=== PATIENT | female | born 1995 | race African-American/Black ===

== ENCOUNTER 2017-02-24 21:20 | Inpatient (IN) | payer MEDICAID ==
[~2017-02-24] VITALS: Ht 167.6 cm; Wt 59.1 kg
[2017-02-25] MEDS ORDERED: LORazepam 2 MG TABLET PO PRN (00:30)
[2017-02-25] MEDS ORDERED: HALOPERIDOL 5 MG TABLET PO PRN (00:30)
[2017-02-25] MEDS ORDERED: ZOLPIDEM TARTRATE 10 MG TABLET PO PRN (00:30)
[2017-02-25 02:05] LABS: APPEARANCE,URINE CLEAR (CLEAR); BILIRUBIN,URINE NEGATIVE (NEGATIVE); GLUCOSE, URINE (UA) NEGATIVE (NEGATIVE); KETONES,URINE 15 mg/dL (NEGATIVE); LEUKOCYTE ESTERASE ,URINE SMALL (NEGATIVE); NITRATE,URINE NEGATIVE (NEGATIVE); OCCULT BLOOD,URINE MODERATE (NEGATIVE); PH,URINE 6.5 (5.0-8.0); PROTEIN,URINE NEGATIVE (NEGATIVE)
[2017-02-25 02:31] LABS: BACTERIA,URINE Moderate /HPF (None Seen); SQUAMOUS EPITHELIAL CELL,UR Moderate /LPF (None Seen)
[2017-02-25 03:44] LABS: AMPHET/METH SCREEN,URINE NEGATIVE (NEGATIVE); BARBITURATE SCREEN, URINE NEGATIVE (NEGATIVE); BENZODIAZEPINES SCREEN,URINE NEGATIVE (NEGATIVE); CANNABINOID SCREEN,URINE POSITIVE (NEGATIVE); COCAINE SCREEN,URINE NEGATIVE (NEGATIVE); METHADONE SCREEN, URINE NEGATIVE (NEGATIVE); OPIATE SCREEN,URINE NEGATIVE (NEGATIVE)
[2017-02-25 03:45] LABS: PHENCYCLIDINE SCREEN,URINE NEGATIVE (NEGATIVE)
[2017-02-25 04:24] VITALS: BP 144/96
[2017-02-25] MEDS ORDERED: INFLUENZA VIRUS VACCINE QVS 2017-18 (3YR+)/PF 60 MCG/0.5 ML SYRINGE IM ONE (05:30)
[2017-02-25 10:50] VITALS: BP 113/68
[2017-02-25 17:12] VITALS: BP 131/85
[2017-02-25 17:47] LABS: HCG,QUAL RESULT NEGATIVE (NEGATIVE)
[2017-02-25] MEDS ORDERED: PETROLATUM,WHITE 71 GM JELLY TP PRN (20:15)
[2017-02-25] MEDS ORDERED: MAGNESIUM HYDROXIDE SUSPENSION 30 ML UDCUP PO PRN (20:15)
[2017-02-25] MEDS ORDERED: BACITRACIN 28.4 GM OINTMENT TP PRN (20:15)
[2017-02-25] MEDS ORDERED: LOPERAMIDE HCL 2 MG CAPSULE PO PRN (20:15)
[2017-02-25] MEDS ORDERED: ONDANSETRON HCL 4 MG TABLET PO PRN (20:15)
[2017-02-25] MEDS ORDERED: IBUPROFEN 600 MG TABLET PO PRN (20:15)
[2017-02-25] MEDS ORDERED: MAG HYDROX/AL HYDROX/SIMETH ES 30 ML SUSPENSION UDCUP PO PRN (20:15)
[2017-02-25] MEDS ORDERED: ACETAMINOPHEN 325 MG TABLET PO PRN (20:15)
[2017-02-25] MEDS ORDERED: CloNIDine HCL 0.1 MG TABLET PO PRN (20:15)
[2017-02-25] MEDS: NITROFURANTOIN/NITROFURAN MAC 100 MG CAPSULE [MACROBID] PO SCH (20:15)
[2017-02-25] MEDS ORDERED: BENZOCAINE/MENTHOL LOZENGE [8 LOZENGES/PACKET] MM PRN (20:30)
[2017-02-25] MEDS: RisperiDONE 0.5 MG TABLET PO SCH (21:00)
[2017-02-26 05:28] VITALS: BP 118/70
[2017-02-26] MEDS: NITROFURANTOIN/NITROFURAN MAC 100 MG CAPSULE [MACROBID] PO SCH ×2 (09:00→16:47)
[2017-02-26] MEDS: OMEPRAZOLE 20 MG CAPSULE PO SCH (09:00)
[2017-02-26] MEDS: DOCUSATE SODIUM 100 MG CAPSULE PO SCH (09:00)
[2017-02-26 09:14] VITALS: BP 153/97
[2017-02-26] MEDS ORDERED: CloNIDine HCL 0.1 MG TABLET PO PRN (12:15)
[2017-02-26 16:35] VITALS: BP 138/97
[2017-02-26] MEDS: RisperiDONE 0.5 MG TABLET PO SCH (20:43)
[2017-02-27 02:45] VITALS: BP 138/80
[2017-02-27 08:58] VITALS: BP 138/71
[2017-02-27] MEDS: NITROFURANTOIN/NITROFURAN MAC 100 MG CAPSULE [MACROBID] PO SCH ×2 (09:00→17:00)
[2017-02-27] MEDS: OMEPRAZOLE 20 MG CAPSULE PO SCH (09:00)
[2017-02-27] MEDS: DOCUSATE SODIUM 100 MG CAPSULE PO SCH (09:00)
[2017-02-27] MEDS ORDERED: RISP.5 PO (14:12)
[2017-02-27] MEDS ORDERED: DSS100 PO (14:13)
[2017-02-27] MEDS ORDERED: MACR100 PO (14:13)
[2017-02-27] MEDS ORDERED: OMEP20 PO (14:14)
== END 2017-02-27 17:45 | disposition home or self-care (01) | DRG 885 ==
LOC: EMS 21:22 → 3EI 02-25 02:00
DX: F29 Unspecified psychosis not due to a substance or known physiological condition (principal); F32.9 Major depressive disorder, single episode, unspecified; N39.0 Urinary tract infection, site not specified; F41.9 Anxiety disorder, unspecified; F64.9 Gender identity disorder, unspecified; G47.00 Insomnia, unspecified; I10 Essential (primary) hypertension; Z28.21 Immunization not carried out because of patient refusal; Z59.0 Homelessness; K59.00 Constipation, unspecified; Z79.899 Other long term (current) drug therapy; K40.90 Unilateral inguinal hernia, without obstruction or gangrene, not specified as recurrent; Z71.51 Drug abuse counseling and surveillance of drug abuser
CPT/HCPCS: 80307; 87086; 99285